=== PATIENT | male | born 1970 | race Hispanic/Latino ===

== ENCOUNTER 2020-01-06 12:10 | Inpatient (IN) | payer BC, OTHER ==
[~2020-01-06] VITALS: Ht 175.3 cm; Wt 99.8 kg
[2020-01-06] MEDS ORDERED: ASPIRIN 81 MG CHEW TAB PO ONE ×2 (12:30→13:15)
[2020-01-06 12:43] LABS: BASOPHILS # (AUTO) 0.1 (0.0-0.1); BASOPHILS % 0.9 % (0.0-1.0); EOSINOPHILS # (AUTO) 0.2 (0.0-0.4); EOSINOPHILS % 2.7 % (0.0-6.0); HEMOGLOBIN 14.3 g/dL (14.0-18.0); LYMPHOCYTES # (AUTO) 2.1 (1.0-3.2); LYMPHOCYTES % 31.6 % (18.0-39.1); MEAN CORPUSCULAR HGB CONC 32.5 g/dL (31-35); MEAN CORPUSCULAR VOLUME 79.9 fL (81-99); MONOCYTES # (AUTO) 0.6 (0.2-0.8); MONOCYTES % 8.1 % (4.4-11.3); NEUTROPHILS # (AUTO) 3.8 (2.1-6.9); NEUTROPHILS % 56.3 % (38.7-80.0); PLATELET COUNT 230 x10e3/uL (140-360); RED BLOOD COUNT 5.51 x10e6/uL (4.3-5.7); RED CELL DISTRIBUTION WIDTH 13.4 % (11.7-14.4)
[2020-01-06] MEDS ORDERED: HYDRALAZINE HCL 20 MG/ML VIAL IV STA (12:54)
[2020-01-06 12:57] LABS: INR 0.91; PROTHROMBIN TIME 12.7 seconds (11.9-14.5)
[2020-01-06 12:58] LABS: PARTIAL THROMBOPLASTIN TIME 27.8 seconds (23.8-35.5)
--- NOTE | 2020-01-06 13:02 | Emergency Department Note ---
History of Present Illnes History of Present Illness Chief Complaint: Chest Pain History of Present Illness This is a 49 year old male arrived to the ED with HTN and EKG changes. Patient admits to intermittent chest pressure but is pain-free now. Historian: Patient Arrival Mode: Car Onset (how long ago): day(s) Severity: mild Duration (how long): day(s) Progression: unchanged Chronicity: new Relieving factors: none Exacerbating factors: none Past Medical/Family History Physician Review I have reviewed the patient's past medical and family history. Any updates have been documented here. Past Medical History Recent Fever: No Clinical Suspicion of Infectio: No New/Unexplained Change in Ment: No Past Medical History: Hypertension Past Surgical History: None Social History Smoking Cessation: Never Smoker Alcohol Use: Social Any Illegal Drug Use: No Physically hurt or threatened: No Review of Systems Review of Systems Constitutional: Reports as per HPI EENTM: Reports no symptoms Cardiovascular: Reports as per HPI Respiratory: Reports no symptoms Gastrointestinal: Reports no symptoms Genitourinary: Reports no symptoms Musculoskeletal: Reports no symptoms Integumentary: Reports no symptoms Neurological: Reports no symptoms Psychological: Reports no symptoms Endocrine: Reports no symptoms Hematological/Lymphatic: Reports no symptoms Physical Exam Related Data Allergies: Coded Allergies: No Known Allergies (Unverified , 01/06/20) Triage Vital Signs Vital Signs Date Time Temp Pulse Resp B/P (MAP) Pulse Ox O2 Delivery O2 Flow Rate FiO2 01/06/20 12:19 98.2 66 18 206/104 99 Room Air Vital signs reviewed: Yes Physical Exam CONSTITUTIONAL Constitutional: Present well-developed, Present well-nourished HENT HENT: Present normocephalic, Present atraumatic, Present oropharynx clear/moist, Present nose normal HENT L/R: Present left ext ear normal, Present right ext ear normal EYES Eyes: Reports PERRL, Reports conjunctivae normal NECK Neck: Present ROM normal PULMONARY Pulmonary: Present effort normal, Present breath sounds normal CARDIOVASCULAR Cardiovascular: Present regular rhythm, Present heart sounds normal, Present capillary refill normal, Present normal rate GASTROINTESTINAL Abdominal: Present soft, Present nontender, Present bowel sounds normal GENITOURINARY Genitourinary: Present exam deferred SKIN Skin: Present warm, Present dry MUSCULOSKELETAL Musculoskeletal: Present ROM normal NEUROLOGICAL Neurological: Present alert, Present oriented x 3, Present no gross motor or sensory deficits PSYCHOLOGICAL Psychological: Present mood/affect normal, Present judgement normal Results Laboratory Result Diagram: 01/06/20 1226 Laboratory Laboratory Tests Test 01/06/20 12:26 White Blood Count 6.75 x10e3/uL (4.8-10.8) Red Blood Count 5.51 x10e6/uL (4.3-5.7) Hemoglobin 14.3 g/dL (14.0-18.0) Hematocrit 44.0 % (38.2-49.6) Mean Corpuscular Volume 79.9 fL (81-99) Mean Corpuscular Hemoglobin 26.0 pg (28-32) Mean Corpuscular Hemoglobin Concent 32.5 g/dL (31-35) Red Cell Distribution Width 13.4 % (11.7-14.4) Platelet Count 230 x10e3/uL (140-360) Neutrophils (%) (Auto) 56.3 % (38.7-80.0) Lymphocytes (%) (Auto) 31.6 % (18.0-39.1) Monocytes (%) (Auto) 8.1 % (4.4-11.3) Eosinophils (%) (Auto) 2.7 % (0.0-6.0) Basophils (%) (Auto) 0.9 % (0.0-1.0) Neutrophils # (Auto) 3.8 (2.1-6.9) Lymphocytes # (Auto) 2.1 (1.0-3.2) Monocytes # (Auto) 0.6 (0.2-0.8) Eosinophils # (Auto) 0.2 (0.0-0.4) Basophils # (Auto) 0.1 (0.0-0.1) Absolute Immature Granulocyte (auto 0.03 x10e3/uL (0-0.1) Lab results reviewed: Yes Imaging Imaging results reviewed: Yes Procedures 12 Lead ECG Interpretation ECG Interpretation : Prior ECG tracings: reviewed Rhythm: sinus rhythm Conduction: left bundle branch block T wave inversion: I, II, III, aVL, aVF, V5, V6 Clinical Impression: abnormal ECG Assessment & Plan Medical Decision Making MDM 49-year-old male arrives to the ED with complaints of high blood pressure, chest tightness. Patient went to his PCP where he received an EKG that was concerning. Patient noted to have T-wave inversions concerning for ischemic changes in the inferior lateral leads. Patient minute for cardiac monitoring and observation. Assessment & Plan Final Impression: (1) Hypertension (2) T wave inversion in EKG (3) Stable angina Depart Disposition: HOME, SELF-CARE Last Vital Signs Date Time Temp Pulse Resp B/P (MAP) Pulse Ox O2 Delivery O2 Flow Rate FiO2 01/06/20 12:19 98.2 66 18 206/104 99 Room Air Medications in the ED Aspirin 81 mg PRN ONCE PO ; Start 01/06/20 at 12:30; Stop 01/06/20 at 12:32; Status DC HERMILA WARD DO Jan 06, 2020 13:02
[2020-01-06 13:08] LABS: ALANINE AMINOTRANSFERASE 72 IU/L (0-55); ALBUMIN 4.2 g/dL (3.5-5.0); ALBUMIN/GLOBULIN RATIO 1.2 (0.8-2.0); ALKALINE PHOSPHATASE 97 IU/L (40-150); ANION GAP 15.5 mmol/L (8-16); BLOOD UREA NITROGEN 11 mg/dL (7-26); BUN/CREATININE RATIO 13 (6-25); CALCIUM 8.8 mg/dL (8.4-10.2); CARBON DIOXIDE 24 mmol/L (22-29); CHLORIDE 105 mmol/L (98-107); CREATINE KINASE 119 IU/L (30-200); CREATININE, SERUM 0.87 mg/dL (0.72-1.25); EST GLOMERULAR FILTRATION RATE > 60 ML/MIN (60-); GLUCOSE 94 mg/dL (74-118); POTASSIUM 3.5 mmol/L (3.5-5.1); SODIUM 141 mmol/L (136-145)
--- NOTE | 2020-01-06 14:01 | Diagnostic Imaging Report ---
EXAM: CHEST SINGLE (PORTABLE) DATE: 01/06/2020 1:10 PM INDICATION: Chest pain, hypertension COMPARISON: None FINDINGS: The trachea is midline. The lungs are symmetrically expanded without evidence for large focal consolidation, pneumothorax, or significant pleural effusion. The cardiomediastinal silhouette appears magnified by technique but otherwise unremarkable. The pulmonary vasculature is not engorged. No acute osseous abnormality is identified. The surrounding soft tissues are unremarkable. IMPRESSION: No acute cardiopulmonary process identified. Signed by: Dr. Johnny Lee MD on 01/06/2020 1:49 PM
--- OUTSIDE RECORDS SUMMARY | 2020-01-06 14:08 | XMS REPORT | Continuity of Care Document ---
Author Author [facility] Organization [facility] Address [address] [place] [address] Dr. Wray [address] [place] [phone] Phone Unavailable Care Team Providers Care Certified Medical Dosimetrist Name Role Phone Paulette WARD Attphys Unavailable Paulette CASTRO Admphys Unavailable Problems This patient has no known problems. Allergies, Adverse Reactions, Alerts This patient has no known allergies or adverse reactions. Medications This patient has no known medications. Procedures This patient has no known procedures. Results Test Description Test Time Test Comments Results Result Comments Source CHEST SINGLE (PORTABLE) 2020-01-06 13:48:00 [place] [address] Patient Name: BUCK LEY MR #: [id number] : 1970 Age/Sex: 49/M Req #: [id number] Adm Physician: Ordered by: HERMILA WARD DO Report #: [id number] Location: ER Room/Bed: Procedure: [id number] DX/CHEST SINGLE (PORTABLE) Exam Date: 01/06/20 Exam Time: 1310 REPORT STATUS: Signed EXAM: CHEST SINGLE (PORTABLE) DATE: 01/06/2020 1:10 PM INDICATION: Chest pain, hypertension COMPARISON: None FINDINGS: The trachea is midline. The lungs are symmetrically expanded without evidence for large focal consolidation, pneumothorax, or significant pleural effusion. The cardiomediastinal silhouette appears magnified by technique but otherwise unremarkable. The pulmonary vasculature is not engorged. No acute osseous abnormality is identified. The surrounding soft tissues are unremarkable. IMPRESSION: No acute cardiopulmonary process identified. Signed by: Dr. Johnny Lee MD on 01/06/2020 1:49 PM Dictated By: JOHNNY LEE MD 1349 Transcribed By: CANDIDA on 01/06/20 1349 COPY TO: HERMILA WARD DO
[2020-01-06 15:42] LABS: CHOL/HDL RATIO 4.9 (3.9-4.7)
[2020-01-06 16:01] LABS: THYROID STIMULATING HORMONE 1.356 uIU/mL (0.350-4.940)
--- OUTSIDE RECORDS SUMMARY | 2020-01-06 16:05 | XMS REPORT | Continuity of Care Document ---
Author Author [facility] Organization [facility] Address [address] [place] [address] Dr. [address] [place] [phone] Phone Unavailable Care Team Providers Care Automation Engineer Name Role Phone Paulette WARD Attphys Unavailable Paulette CASTRO Admphys Unavailable Problems This patient has no known problems. Allergies, Adverse Reactions, Alerts This patient has no known allergies or adverse reactions. Medications This patient has no known medications. Procedures This patient has no known procedures. Results Test Description Test Time Test Comments Results Result Comments Source CHEST SINGLE (PORTABLE) 2020-01-06 13:48:00 [place] [address] Patient Name: BUCK LEY MR #: [id number] : 1970 Age/Sex: 49/M Req #: [id number] Adm Physician: Ordered by: HERMILA WARD DO Report #: [id number] Location: ER Room/Bed: Procedure: [id number] DX/CHEST SINGLE (PORTABLE) Exam Date: 01/06/20 Exam [...]
[2020-01-06 16:37] VITALS: BP 164/109
[2020-01-06 17:24] VITALS: BP 164/109
--- NOTE | 2020-01-06 17:25 | Consultation ---
DATE OF CONSULTATION: 01/06/2020 REASON FOR CONSULTATION: Hypertension, abnormal EKG. CHIEF COMPLAINT: Elevated blood pressure, headache. HISTORY OF PRESENT ILLNESS: This is a 49-year-old male with history of hypertension. The patient presents to Patients ER with complaints of elevated blood pressure, was noted with a blood pressure of 202/104, was given hydralazine 10 mg with improved blood pressure, most recent reading 136/74. Cardiology was consulted secondary to the patient's abnormal EKG, inverted T-waves in lateral leads noted. The patient is seen in the ER 8, was complaining of headache, noted that his blood pressure was elevated yesterday systolically reported as 197, went to see his PCP in which reported blood pressure systolic was 187, was told that he needed to go to the ER for further evaluation. The patient also reports that he ran out of his enalapril about 3 to 4 days ago, however, symptoms started about a day and a half ago. The patient denies any chest pain or shortness of breath. 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 Denies any anginal symptoms at this time. At this time, the patient also reports he feels at baseline and is requesting to go home. PAST MEDICAL HISTORY: Hypertension. PAST SURGICAL HISTORY: Denies any surgeries. FAMILY HISTORY: Mother alive, history of hypertension. Father , history of diabetes. HOME MEDICATIONS: Enalapril 5 mg daily. SOCIAL HISTORY: He is single. 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 He denies any alcohol or tobacco use. REVIEW OF SYSTEMS: GENERAL: Denies any weight change, fatigue, weakness, fevers, chills, or night sweats. SKIN: No rash or sores. HEENT: Denies any nausea, vomiting, vision changes, blurred vision, double vision, or epistaxis. Positive for headache. No sore throat, swollen gums, or bleeding gums. CARDIAC: Denies any chest pain, shortness of breath, or lower extremity edema. RESPIRATORY: Denies any shortness of breath, wheezing, coughing, or hemoptysis. GI: Reports good appetite. Denies any nausea, vomiting, diarrhea, melena, tarry or bloody stools. URINARY: Denies any hematuria or dysuria. VASCULAR: Denies any lower extremity edema or claudication. MUSCULOSKELETAL: Positive for generalized joint pains and back pains. NEUROLOGIC: Denies any numbness, tingling, tremors, weakness, paralysis, or seizures. HEMATOLOGY: Denies any bruising or anemia. ENDOCRINE: Denies any heat or cold intolerance, polyuria, polydipsia, or polyphagia. PHYSICAL EXAMINATION: VITAL SIGNS: Height 69 inches, weight 220 pounds. Current vital signs; pulse 84, respiratory rate 17, blood pressure 136/74, pulse ox 100% on room air, and temperature 98.2. GENERAL: Appears stated age, reliable informant, in no acute distress. SKIN: No rashes or bruises noted. HEENT: Normocephalic. Pupils are equal and reactive. Extraocular movements intact. Trachea midline. No JVD. No carotid bruit. Oral mucosa pink. HEART: Regular rate and rhythm. PMI 4th and 5th intercostal space. LUNGS: Bilateral breath sounds. Clear to auscultation. Good airway entry and exit. ABDOMEN: Soft, nontender, and nondistended. No organomegaly noted. MUSCULOSKELETAL: Good muscle strength throughout. No lower extremity edema noted. VASCULAR: +2 radial pulses bilaterally, +2 DP/PT pulses bilaterally. NEUROLOGIC: Cranial nerves 2 through 12 seem intact. LABORATORY DATA: White count 6, hemoglobin 14, hematocrit 44, and platelets 230. Sodium 141, potassium 3.5, chloride 105, BUN 11, and creatinine 0.8. Troponin 0.02. BNP 30. INR 0.9. PT 17 and PTT 27. Chest x-ray showing no acute abnormalities. EKG showing sinus rhythm with inverted T-waves in lateral leads. ASSESSMENT: 1. Hypertension urgency. 2. Headache. 3. Abnormal EKG. PLAN: The patient presents to [facility] ER with complaints of elevated blood pressure and headache. Unfortunately, the patient ran out of his enalapril about 4 or 5 days ago. However, currently after receiving hydralazine, blood pressure within reasonable. Denies any chest pain or shortness of breath. We will restart enalapril therapy. Ischemic evaluation discussed with the patient, however, this could be as outpatient. Also, the patient wishes to go home and follow up in office. Enalapril prescription given to the patient. Okay for the patient to go home and follow up in office for outpatient ischemic evaluation. Thank you very much for this consult. Dictated by Cooper Dickey, SURGICAL APPLIANCE FITTER Eliud Deshpande MD DC/DARRIN /[id number]
[2020-01-06] MEDS ORDERED: VASOTEC5 MG PO (18:43)
[2020-01-06 20:00] VITALS: BP 196/101
[2020-01-06] MEDS ORDERED: ACETAMINOPHEN/CODEINE 300MG - 30MG TAB PO PRN (20:30)
[2020-01-06] MEDS ORDERED: MELATONIN 5 MG TABLET PO PRN (20:30)
[2020-01-06] MEDS ORDERED: DOCUSATE SODIUM 100 MG CAP PO PRN (20:30)
[2020-01-06] MEDS ORDERED: ACETAMINOPHEN 325 MG TAB ONE (20:48)
[2020-01-06] MEDS: ACETAMINOPHEN 325 MG TAB PO PRN (20:48)
[2020-01-06] MEDS ORDERED: HYDRALAZINE HCL 20 MG/ML VIAL IV ONE (21:10)
[2020-01-06] MEDS: CARVEDILOL 3.125 MG TAB PO SCH (21:22)
[2020-01-06] MEDS: LOSARTAN POTASSIUM 100 MG TAB PO SCH (21:22)
[2020-01-06] MEDS: ATORVASTATIN 40 MG TAB PO SCH (21:22)
--- NOTE | 2020-01-06 22:01 | Diagnostic Imaging Report ---
EXAMINATION: Head CT without contrast. HISTORY:Headache. COMPARISON:None. TECHNIQUE: Multidetector axial images were obtained from the foramen magnum to the vertex without contrast. The images were reconstructed using brain and bone algorithms. Thin section brain images were reformatted into coronal and sagittal planes. Dose modulation, iterative reconstruction, and/or weight based adjustment of the mA/kV was utilized to reduce the radiation dose to as low as reasonably achievable. Intravenous contrast: None IMAGE QUALITY: Acceptable. FINDINGS: Skull/scalp: No lytic or blastic. lesions. No surgical changes. Parenchyma: No abnormal density. No acute hemorrhage, mass or acute major vascular territorial infarct. Arteries: No density suggestive of thrombosis. Dural sinuses: No abnormal density suggestive of thrombosis. Ventricles: No hydrocephalus or displacement. Extra-axial spaces: No abnormal density. Brain volume: Normal for age. Craniocervical junction: No mass, Chiari malformation, or basilar invagination. Sella: No mass. Paranasal/mastoid sinuses: Imaged portions unremarkable. IMPRESSION: No intracranial abnormality. Signed by: Dr. Xiomy Oh M.D. on 01/06/2020 9:57 PM
[2020-01-06] MEDS: HYDROCODONE/APAP 5MG-325MG TAB PO PRN (23:00)
[2020-01-06 23:46] LABS: CREATINE KINASE MB 1.3 ng/mL (0-5.0)
[2020-01-07] VITALS (9 sets, daily range): BP systolic 147–196; BP diastolic 81–101
--- NOTE | 2020-01-07 02:02 | History and Physical ---
CHIEF COMPLAINT: Headaches and elevated blood pressure readings. HISTORY OF PRESENT ILLNESS: A 49-year-old male with only known past medical history of hypertension. He came into the ED with complaints of several day history of headaches as well as elevated blood pressure readings. The patient takes enalapril for his blood pressure. Over the last several days, he noticed that this blood pressure was in the 190s and unable to come down. He reported to his PCP, who told him to come to the hospital. He also reports having some headache, which could be presumed secondary to hypertension. No nausea. No vomiting. No diarrhea. No recent sickness, cough, congestion, or fever. The patient was stable during my evaluation. He also complained of underlying chest pain as well, but Cardiology has been consulted for evaluation and management. He denies any chest pain during my evaluation. REVIEW OF SYSTEMS: Pertinent positive: Chest pain and headaches. The rest of the 14-point review of systems have been reviewed with the patient and are negative. ALLERGIES: NO KNOWN DRUG ALLERGIES. HOME MEDICATIONS: He takes enalapril. PAST MEDICAL HISTORY: Hypertension. PAST SURGICAL HISTORY: He reports none. FAMILY HISTORY: Hypertension and diabetes. SOCIAL HISTORY: No drugs. No alcohol. Does not smoke. Good support. PHYSICAL EXAMINATION: VITAL SIGNS: Temperature 97.7, pulse 85, respirations is 22, blood pressure is 171/90, pulse ox 99% on room air. GENERAL: Not in acute distress. Alert and oriented x3. Cooperative on examination. HEENT: Head is normocephalic and atraumatic. Eyes; pupils are equal, round, and reactive to light bilaterally. Extraocular movements are intact bilaterally. Throat, no evidence of any erythema or exudates in the posterior pharynx. Has poor dentition. NECK: Supple. Good range of motion. PULMONARY: Clear to auscultation bilaterally. No wheezing, rales, or rhonchi. No crackles appreciated. CARDIOVASCULAR: Positive S1 and S2. No murmurs, rubs, or gallops appreciated. ABDOMEN: Soft, nondistended, nontender to palpation. Bowel sounds present. MUSCULOSKELETAL: Strength is 5/5 throughout. No evidence of muscle deficits on examination. No weakness appreciated. NEUROLOGICAL: Cranial nerves II through XII grossly intact. No evidence of any neurological deficits on exam. SKIN: Intact, warm to touch, good cap refill. PSYCHIATRIC: Normal affect and mood. EXTREMITIES: No edema. Good range of motion throughout. LABORATORY FINDINGS: Show white count 6.7, hemoglobin 14, hematocrit is 44, and platelets of 230. Chemistry; sodium 141, potassium 3.5, chloride 105, bicarb 24, anion gap of 15, BUN is 11, creatinine 0.87, glucose is 94, calcium is 8.8, total bilirubin 0.5, AST 39, ALT 72. Troponins are so far negative. BNP 30. Albumin 4.2. LDL is 139. SEROLOGY: Coronavirus is pending. IMAGING STUDIES: Chest x-ray, no acute cardiopulmonary process noted. CT brain, no intracranial abnormality. IMPRESSION: 1. Hypertension urgency. 2. Atypical chest pain. 3. Headaches, likely secondary to elevated blood pressure readings. PLAN: At this time, blood pressure is extremely elevated, but currently being managed accordingly. He is on p.r.n. hydralazine. I added losartan 100 mg daily as well as Coreg 3.125 mg p.o. b.i.d., first doses will be given this evening. As for his headaches, stat CT brain was ordered, found to be negative. I will continue to monitor his headaches and if continues to progress, we will get MRI of the brain. As for his chest pain, Cardiology was consulted. It seems to be more atypical in nature. He voiced Cardiology like to follow up as an outpatient. We will monitor very closely. Consider discharge tomorrow if stable. MD LISA Rocha/DARRIN /[id number]
[2020-01-07] MEDS: HYDROCODONE/APAP 5MG-325MG TAB PO PRN ×2 (04:30→16:29)
[2020-01-07 04:51] LABS: BASOPHILS # (AUTO) 0.1 (0.0-0.1); BASOPHILS % 0.9 % (0.0-1.0); EOSINOPHILS # (AUTO) 0.2 (0.0-0.4); EOSINOPHILS % 3.1 % (0.0-6.0); HEMATOCRIT 43.6 % (38.2-49.6); HEMOGLOBIN 13.5 g/dL (14.0-18.0); LYMPHOCYTES # (AUTO) 2.1 (1.0-3.2); LYMPHOCYTES % 28.6 % (18.0-39.1); MEAN CORPUSCULAR HEMOGLOBIN 25.4 pg (28-32); MEAN CORPUSCULAR VOLUME 82.1 fL (81-99); MONOCYTES # (AUTO) 0.7 (0.2-0.8); MONOCYTES % 9.7 % (4.4-11.3); NEUTROPHILS # (AUTO) 4.3 (2.1-6.9); NEUTROPHILS % 57.3 % (38.7-80.0); PLATELET COUNT 223 x10e3/uL (140-360); RED BLOOD COUNT 5.31 x10e6/uL (4.3-5.7); RED CELL DISTRIBUTION WIDTH 13.9 % (11.7-14.4)
[2020-01-07 05:07] LABS: ANION GAP 15.6 mmol/L (8-16); BLOOD UREA NITROGEN 14 mg/dL (7-26); BUN/CREATININE RATIO 15 (6-25); CALCIUM 8.9 mg/dL (8.4-10.2); CARBON DIOXIDE 26 mmol/L (22-29); CHLORIDE 104 mmol/L (98-107); CREATININE, SERUM 0.92 mg/dL (0.72-1.25); EST GLOMERULAR FILTRATION RATE > 60 ML/MIN (60-); GLUCOSE 96 mg/dL (74-118); POTASSIUM 3.6 mmol/L (3.5-5.1); SODIUM 142 mmol/L (136-145)
[2020-01-07 05:34] LABS: THYROID STIMULATING HORMONE 1.931 uIU/mL (0.350-4.940)
[2020-01-07 05:35] LABS: CREATINE KINASE MB 1.2 ng/mL (0-5.0)
[2020-01-07] MEDS: ACETAMINOPHEN 325 MG TAB PO PRN (07:58)
[2020-01-07] MEDS: LOSARTAN POTASSIUM 100 MG TAB PO SCH (07:58)
[2020-01-07] MEDS: CARVEDILOL 3.125 MG TAB PO SCH ×2 (07:58→16:23)
[2020-01-07] MEDS ORDERED: ASPIRIN 325 MG TAB PO SCH (09:00)
[2020-01-07] MEDS ORDERED: LOSARTAN POTAS100 MG PO (13:43)
[2020-01-07] MEDS ORDERED: ATORVASTATIN CA20 MG PO (13:44)
[2020-01-07] MEDS ORDERED: CARVEDILOL3.125 MG PO (13:44)
[2020-01-07] MEDS: HYDRALAZINE HCL 20 MG/ML VIAL IV PRN (16:23)
[2020-01-07] MEDS: HYDRALAZINE HCL 25 MG TAB PO SCH (17:39)
[2020-01-07] MEDS: ATORVASTATIN 40 MG TAB PO SCH (21:36)
[2020-01-08] VITALS (9 sets, daily range): BP systolic 149–190; BP diastolic 85–106
--- NOTE | 2020-01-08 02:26 | Progress Note ---
DATE: 01/07/2020 Medicine Progress Note SUBJECTIVE: The patient still reports having some mild headache. Cardiology evaluated, no further workup needed. Blood pressure is still elevated. We are to still adjusting medications chronically. PHYSICAL EXAMINATION: VITAL SIGNS: Temperature is 98.1, pulse is 72, respirations 18, blood pressure , pulse ox 99% on room air. GENERAL: In no acute distress. Alert and oriented x3. Cooperative on examination. HEENT: Normocephalic, atraumatic. Eyes; pupils are equal, round, and reactive to light bilaterally. Throat; no evidence of erythema or exudates in the posterior pharynx. Has poor dentition NECK: Supple. Good range of motion. PULMONARY: Clear to auscultation. No wheezing, rales, or rhonchi. No crackles appreciated. CARDIOVASCULAR: Positive S1 and S2. ABDOMEN: Soft, nondistended, nontender to palpation. Bowel sounds present. MUSCULOSKELETAL: Strength is 5/5 throughout. No evidence of any muscle deficits on examination. SKIN: Intact. Warm to touch. Good cap refill. PSYCHIATRIC: Normal affect and mood. EXTREMITIES: No edema. LABORATORY DATA: Show white count 7.4, hemoglobin 13, hematocrit 34, platelets of 223. Coagulation normal. Chemistry stable. LDL was elevated. IMAGING STUDIES: CT brain was found to be negative. IMPRESSION: 1. Hypertensive urgency. 2. Atypical chest pain. 3. Headaches likely due to underlying hypertension. PLAN: At this time, blood pressure is still elevated. We will add hydralazine regimen for his blood pressure. an MRI of the brain with and without contrast. I spoke with Cardiology. The patient has been cleared by Cardiology standpoint. We will follow up as an outpatient in the office further cardiac workup. Otherwise, continue to monitor very closely. Plan of care discussed with nursing staff. Once the imaging studies are back and are negative, he can be discharged to home. MD LISA Rocha/DARRIN /[id number]
[2020-01-08 05:00] LABS: BASOPHILS # (AUTO) 0.1 (0.0-0.1); BASOPHILS % 0.7 % (0.0-1.0); EOSINOPHILS # (AUTO) 0.3 (0.0-0.4); HEMATOCRIT 44.2 % (38.2-49.6); HEMOGLOBIN 14.1 g/dL (14.0-18.0); LYMPHOCYTES # (AUTO) 2.2 (1.0-3.2); LYMPHOCYTES % 25.6 % (18.0-39.1); MEAN CORPUSCULAR HEMOGLOBIN 25.9 pg (28-32); MEAN CORPUSCULAR HGB CONC 31.9 g/dL (31-35); MEAN CORPUSCULAR VOLUME 81.3 fL (81-99); MONOCYTES # (AUTO) 0.9 (0.2-0.8); MONOCYTES % 10.8 % (4.4-11.3); NEUTROPHILS # (AUTO) 5.2 (2.1-6.9); NEUTROPHILS % 59.4 % (38.7-80.0); PLATELET COUNT 228 x10e3/uL (140-360); RED BLOOD COUNT 5.44 x10e6/uL (4.3-5.7); RED CELL DISTRIBUTION WIDTH 14.1 % (11.7-14.4)
[2020-01-08 05:20] LABS: ANION GAP 16.1 mmol/L (8-16); BLOOD UREA NITROGEN 17 mg/dL (7-26); BUN/CREATININE RATIO 15 (6-25); CARBON DIOXIDE 26 mmol/L (22-29); CHLORIDE 105 mmol/L (98-107); CREATININE, SERUM 1.16 mg/dL (0.72-1.25); EST GLOMERULAR FILTRATION RATE > 60 ML/MIN (60-); GLUCOSE 97 mg/dL (74-118); POTASSIUM 4.1 mmol/L (3.5-5.1); SODIUM 143 mmol/L (136-145)
[2020-01-08] MEDS: LOSARTAN POTASSIUM 100 MG TAB PO SCH (08:57)
[2020-01-08] MEDS: CARVEDILOL 3.125 MG TAB PO SCH ×2 (08:57→16:34)
[2020-01-08] MEDS: HYDRALAZINE HCL 25 MG TAB PO SCH ×3 (08:58→20:49)
[2020-01-08] MEDS ORDERED: GADOBENATE DIMEGLUMINE 1 ML IV ONE (11:57)
--- NOTE | 2020-01-08 13:31 | Diagnostic Imaging Report ---
Examination: MRI BRAIN WOW CONTRAST History: Headache; hypertension Comparison studies: Head CT dated 01/06/2020 Technique: Pre-contrast: Sagittal T2; axial T1, GRE or SWI, DWI, T2 FLAIR Post-contrast: axial, sagittal and coronal T1. Intravenous contrast: 12 mL MultiHance Findings: Scalp: No abnormal signal. No masses. Bone marrow: Normal in signal intensity. Brain volume: Adequate for age. No volume loss. Ventricles: Normal in size and configuration. No hydrocephalus. Parenchyma: No abnormal signal intensities. No masses, hemorrhage, acute or chronic vascular insults. Extra-axial spaces: No lesion, fluid collection or hematoma. Enhancement: No abnormal enhancement. Suprasellar and sellar region: No abnormalities. Craniocervical junction: No abnormalities. The foramen magnum is patent. No Chiari malformations. Vessels: Normal flow-voids in the arteries and sinuses. Additional findings:None. IMPRESSION: No acute abnormalities. Signed by: Dr. Nadja Joyce M.D. on 01/08/2020 1:27 PM
[2020-01-08] MEDS: HYDRALAZINE HCL 20 MG/ML VIAL IV PRN (16:33)
[2020-01-08] MEDS: ACETAMINOPHEN 325 MG TAB PO PRN (18:00)
--- NOTE | 2020-01-08 19:18 | Progress Note ---
DATE: 01/08/2020 Medicine Progress Note SUBJECTIVE: The patient had an MRI of the brain today, which was found to be negative. He still has a slight headache. Blood pressure is still uncontrolled and I am still adjusting his medications accordingly. PHYSICAL EXAMINATION: VITAL SIGNS: Temperature is 98.2, pulse 72, respiratory rate is 17, last blood pressure was 166/87, but prior to that was 190/106, and pulse ox 99% on room air. GENERAL: Not in acute distress. Alert and oriented x3. Cooperative on examination. HEENT: Head; normocephalic, atraumatic. Eyes; pupils are equal, round, and reactive to light bilaterally. Extraocular movements intact bilaterally. Throat; no evidence of erythema or exudates in the posterior pharynx. Has poor dentition. NECK: Supple. Good range of motion. PULMONARY: Clear to auscultation bilaterally. No wheezing, no rales, no rhonchi, no crackles appreciated. CARDIOVASCULAR: Positive S1 and S2. No murmurs, rubs, or gallops appreciated. ABDOMEN: Soft, nondistended, and nontender to palpation. Bowel sounds present. MUSCULOSKELETAL: Strength is 5/5 throughout. No evidence of any muscle deficits on examination. No weakness appreciated. NEUROLOGIC: Cranial nerves 2 through 12 grossly intact. No evidence of any neurological deficits on exam. SKIN: Intact. Warm to touch. Good cap refill. PSYCHIATRIC: Normal affect and mood. EXTREMITIES: No edema. Good range of motion throughout. LABORATORY FINDINGS: Show white count 8.7, hemoglobin 14, hematocrit is 44, and platelets of 228. Chemistries reviewed, stable. IMAGING STUDIES: MRI of the brain shows no acute abnormality. IMPRESSION: 1. Hypertension urgency. 2. Atypical chest pain. 3. Headaches, likely secondary to hypertension. PLAN: At this time, MRI of the brain was found to be negative. Blood pressure is still uncontrolled, in which now I am adjusting his hydralazine orally to 100 mg p.o. t.i.d., Coreg increased and we will continue with losartan. Once his blood pressure is much improved, he can be discharged. He is not ready at this time due to elevated blood pressure readings. I discussed plan of care with nursing staff. Get a.m. labs. He still has a slight headache, in which we will give him some pain control. MD LISA Rocha/DARRIN /[id number]
[2020-01-08] MEDS: ATORVASTATIN 40 MG TAB PO SCH (20:50)
[2020-01-09] VITALS (8 sets, daily range): BP systolic 140–197; BP diastolic 87–96
[2020-01-09] MEDS: HYDROCODONE/APAP 5MG-325MG TAB PO PRN (01:12)
[2020-01-09] MEDS: LOSARTAN POTASSIUM 100 MG TAB PO SCH (08:02)
[2020-01-09] MEDS: HYDRALAZINE HCL 25 MG TAB PO SCH ×3 (08:02→20:50)
[2020-01-09] MEDS: CARVEDILOL 3.125 MG TAB PO SCH (08:02)
[2020-01-09] MEDS: ACETAMINOPHEN 325 MG TAB PO PRN ×2 (08:27→20:15)
[2020-01-09] MEDS ORDERED: NIFEDIPINE CR 30 MG TAB PO SCH (15:30)
[2020-01-09] MEDS ORDERED: ENOXAPARIN SOD INJ 40 MG/0.4 ML SYR SC SCH (17:00)
[2020-01-09] MEDS: HYDRALAZINE HCL 20 MG/ML VIAL IV PRN (18:00)
[2020-01-09] MEDS: ATORVASTATIN 40 MG TAB PO SCH (20:50)
[2020-01-09] MEDS: NIFEDIPINE CR 30 MG TAB PO SCH (23:14)
[2020-01-10] VITALS: BP 159/75
--- NOTE | 2020-01-10 01:10 | Progress Note ---
DATE: 01/09/2020 Medicine Progress Note SUBJECTIVE: The patient is doing well. His headaches have resolved. He still has elevated blood pressure readings. Medications were adjusted accordingly, but still blood pressure is still elevated. PHYSICAL EXAMINATION: VITAL SIGNS: Temperature is 98, pulse is 80, respiratory rate is 20, blood pressure is 182/92, pulse ox 100% on room air. GENERAL: Not in acute distress. Alert and oriented x3. Cooperative on examination. HEENT: Head is normocephalic and atraumatic. Eyes; pupils are equal, round, and reactive to light bilaterally. Extraocular movements intact bilaterally. Throat; no evidence of erythema or exudates in the posterior pharynx. Has poor dentition. NECK: Supple. Good range of motion. PULMONARY: Clear to auscultation bilaterally. No wheezing, no rales, no rhonchi, no crackles appreciated. CARDIOVASCULAR: Positive S1 and S2. No murmurs, rubs, or gallops appreciated. ABDOMEN: Soft, nondistended, and nontender to palpation. Bowel sounds present. MUSCULOSKELETAL: Strength is 5/5 throughout. No evidence of any muscle deficits on examination. SKIN: Intact. Warm to touch. Good cap refill. PSYCHIATRIC: Normal affect and mood. EXTREMITIES: No edema. Good range of motion throughout. LABORATORY DATA: Show CBC is stable. Chemistry is stable. MRI of the brain was normal. IMPRESSION: 1. Hypertension urgency. 2. Atypical chest pain. 3. Headaches-resolved. PLAN: At this time, the patient's blood pressure is still elevated despite adjustment of medications. I will go ahead and just discontinue the hydralazine for now. Continue with losartan 100 mg daily and add nifedipine XL 30 mg b.i.d. Continue with Coreg for now as well. If his blood pressure is much improved tomorrow, we will consider discharging to home. I discussed this plan of care with the nursing staff. The patient will be converted to inpatient status. MD LISA Rocha/HENNAL /[id number]
[2020-01-10 04:00] VITALS: BP 131/81
[2020-01-10] MEDS: ACETAMINOPHEN 325 MG TAB PO PRN (05:43)
[2020-01-10 08:00] VITALS: BP 154/81
[2020-01-10 08:08] VITALS: BP 154/81
[2020-01-10] MEDS: LOSARTAN POTASSIUM 100 MG TAB PO SCH (08:41)
[2020-01-10] MEDS: NIFEDIPINE CR 30 MG TAB PO SCH (08:42)
[2020-01-10 12:00] VITALS: BP 165/95
--- NOTE | 2020-01-11 04:25 | Discharge Summary ---
FINAL DIAGNOSES: 1. Hypertension urgency-improved. 2. Atypical chest pain. 3. Headaches-resolved. CONSULTANTS: Cardiology. PHYSICAL EXAMINATION: VITAL SIGNS: Temperature is 98.1, pulse 78, respiratory rate is 19, blood pressure 154/81, pulse ox 99% on room air. LABORATORY DATA: Labs show white count 8.7, hemoglobin 14, hematocrit 44, platelets of 228. Chemistry; sodium 143, potassium 4.1, chloride 104, bicarb 26, anion gap of 15, BUN 17, creatinine is 1.1, hemoglobin A1c is 5.3, calcium is 9. Troponins were all negative. TSH is 1.9. LDL cholesterol 139. Serology: Coronavirus not detected. IMAGING STUDIES: Chest x-ray was found to be negative. CT brain was found to be negative. MRI of the brain negative. HOSPITAL COURSE: A 49-year-old male, comes into the ED with complaints of chest pain and probably a hypertension urgency. Cardiology was consulted. Cardiac enzymes were negative. EKG showed no acute findings. No further cardiac workup was needed. The patient followup as an outpatient for further management and care. As for his blood pressure, his blood pressure was elevated prompting several changes in arrangements, as well as antihypertensive medications. The patient has had several medications rearranged and improved prior to being discharged. The patient seems to have blood pressure readings in the 190s possibly with close to 200 on a daily basis at home. While here, his blood pressure maintained in the 150s after multiple adjustments of his antihypertensive medication. The patient's blood pressure much improved prior to being discharged to home. He also complained of headache while here in the hospital stay. Positive CT brain and MRI of the brain, which were found to be negative. His headache is resolved. The patient was cleared for discharge by Cardiology. No further workup. On the day of discharge, vital signs were stable, labs reviewed were stable. The patient was seen, evaluated, and examined thoroughly on the day of discharge. No other complaints. 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 MEDICATIONS: See med reconciliation form. DISPOSITION: Home. CONDITION: Stable. DIET: Heart healthy. In the event of worsening symptoms, the patient was advised to come back to the ED for further evaluation. Discharge summary took greater than 35 minutes. MD LISA Rocha/DARRIN /[id number]
== END 2020-01-10 15:24 | disposition home or self-care (01) | DRG 305 ==
LOC: ER 12:25 → ERHOLD 13:05 → MED/SURG 16:28 → OBSVTOIN 01-09 15:20
PROVIDERS: ADMIT Internal Medicine; ATTEND Internal Medicine
DX: I11.9 Hypertensive heart disease without heart failure (principal); I16.0 Hypertensive urgency; R51 Headache; R07.89 Other chest pain; Z11.59 Encounter for screening for other viral diseases; R94.31 Abnormal electrocardiogram [ECG] [EKG]
CPT/HCPCS: 36415; 70450; 70553; 71045; 80048; 80053; 80061; 82550; 82553; 82948; 83036; 83880; 84443; 84484; 85025; 85610; 85730; 93005; 93306; 99284; G0378; J0360; J1650; U0002